=== PATIENT | female | born 1990 | race Caucasian/White ===

== ENCOUNTER 2017-07-23 14:29 | Emergency (ER) | payer BC ==
[2017-07-23] MEDS ORDERED: Sodium Chloride 0.9% 1,000 ML IV STA (15:32)
[2017-07-23] MEDS ORDERED: Sodium Chloride 0.9% 10 ML Syringe FLUSH PRN (15:32)
--- NOTE | 2017-07-23 17:42 | EDM.PDOC ---
ED HPI GENERAL MEDICAL PROBLEM - General Chief Complaint: Gastrointestinal Problem Stated Complaint: VOMITING AND DIARRHEA Time Seen by Provider: 07/23/17 15:13 Source of Information: Reports: Patient History Limitations: Reports: No Limitations - History of Present Illness INITIAL COMMENTS - FREE TEXT/NARRATIVE: The patient presents with nausea, vomiting and diarrhea. This started about 4 days ago. She was seen at the [facility] and give some zofran. The vomiting is better but she has no appetite. She has no fever, chills, cough, chest pain, or shortness of breath. She has no dysuria. She has not been around anyone who is sick and she did not eat any bad food. She has hypothyroidism. She denies abdominal pain. Onset: Gradual Duration: Day(s): Severity: Moderate Improves with: Reports: None Worsens with: Reports: None Associated Symptoms: Reports: Nausea/Vomiting. Denies: Confusion, Chest Pain, Fever/Chills, Headaches, Loss of Appetite headache Pain Score (Numeric/FACES): 7 - Related Data Allergies Allergy/AdvReac Type Severity Reaction Status Date / Time aspirin Allergy Dizziness Verified 07/23/17 15:11 Home Meds: Home Meds Levonorgestrel-Ethin Estradiol [Aviane] 1 tab PO DAILY 07/23/17 [History] Levothyroxine 175 mcg PO ACBRK 07/23/17 [History] Ondansetron [Zofran ODT] 4 mg PO Q6H PRN 07/23/17 [History] Past Medical History Gastrointestinal History: Reports: Cholelithiasis Genitourinary History: Reports: Other (See Below) Other Genitourinary History: HPV Endocrine/Metabolic History: Reports: Hypothyroidism - Past Surgical History HEENT Surgical History: Reports: Adenoidectomy, Tonsillectomy GI Surgical History: Reports: Cholecystectomy, Colonoscopy, EGD Female Surgical History: Reports: Cervical Conization, Other (See Below) Other Female Surgeries/Procedures: colposcopy Endocrine Surgical History: Reports: Other (See Below) Other Endocrine Surgeries/Procedures: radioactive iodine Social & Family History - Family History Family Medical History: Noncontributory - Tobacco Use Smoking Status *Q: Never Smoker - Caffeine Use Caffeine Use: Reports: Coffee - Recreational Drug Use Recreational Drug Use: No ED ROS GENERAL - Review of Systems Review Of Systems: See Below Constitutional: Reports: No Symptoms HEENT: Reports: No Symptoms Respiratory: Reports: No Symptoms Cardiovascular: Reports: No Symptoms Endocrine: Reports: No Symptoms GI/Abdominal: Reports: Diarrhea, Nausea, Vomiting. Denies: Abdominal Pain : Reports: No Symptoms Musculoskeletal: Reports: No Symptoms Skin: Reports: No Symptoms ED EXAM, GI/ABD - Physical Exam Exam: See Below Exam Limited By: No Limitations General Appearance: Alert, No Apparent Distress Ears: Normal External Exam Nose: Normal Inspection Head: Atraumatic, Normocephalic Neck: Normal Inspection Respiratory/Chest: No Respiratory Distress, Lungs Clear, Normal Breath Sounds Cardiovascular: Regular Rate, Rhythm, No Edema, No Murmur GI/Abdominal Exam: Soft, Non-Tender, No Organomegaly, No Mass Back Exam: Normal Inspection Extremities: Normal Inspection Course - Vital Signs Last Recorded V/S: Last Vital Signs Temp 98.1 F 07/23/17 15:07 Pulse 100 07/23/17 15:07 Resp 18 07/23/17 15:07 BP 116/93 H 07/23/17 15:07 Pulse Ox 100 07/23/17 15:07 - Orders/Labs/Meds Orders: Active Orders 24 hr Category Date Time Status Peripheral IV Care [RC] . DIRECTED Care 07/23/17 15:33 Active C DIFFICILE BY PCR W/NAP1 [MOLEC] Stat Lab 07/23/17 17:26 Ordered CULTURE STOOL + SHIGATOX [RM] Stat Lab 07/23/17 17:26 Uncollected OVA & PARASITES BY IMMUNOASSAY [MREF] Stat Lab 07/23/17 17:26 Uncollected WBC, STOOL [OP] Stat Lab 07/23/17 17:26 Uncollected Sodium Chloride 0.9% [Saline Flush] Med 07/23/17 15:32 Active 10 ml FLUSH ASDIRECTED PRN Peripheral IV Insertion Adult [OM.PC] Stat Oth 07/23/17 15:32 Ordered Medication Orders Sodium Chloride (Saline Flush) 10 ml FLUSH ASDIRECTED PRN PRN Reason: Keep Vein Open Last Admin: 07/23/17 15:50 Dose: 10 ml Labs: Laboratory Tests 07/23/17 07/23/17 07/23/17 Range/Units 15:25 15:25 16:01 WBC 4.59 (3.98-10.04) K/mm3 RBC 4.55 (3.98-5.22) M/mm3 Hgb 14.3 (11.2-15.7) gm/L Hct 41.4 (34.1-44.9) % MCV 91.0 (79.4-94.8) fl MCH 31.4 (25.6-32.2) pg MCHC 34.5 (32.2-35.5) g/dl RDW Std Deviation 39.5 (36.4-46.3) fL Plt Count 301 (182-369) K/mm3 MPV 8.8 L (9.4-12.3) fl Neut % (Auto) 63.6 (34.0-71.1) % Lymph % (Auto) 24.2 (19.3-51.7) % [place] % (Auto) 11.1 (4.7-12.5) % Eos % (Auto) 0.7 (0.7-5.8) Baso % (Auto) 0.4 (0.1-1.2) % Neut # (Auto) 2.92 (1.56-6.13) K/mm3 Lymph # (Auto) 1.11 L (1.18-3.74) K/mm3 [place] # (Auto) 0.51 H (0.24-0.36) K/mm3 Eos # (Auto) 0.03 L (0.04-0.36) K/mm3 Baso # (Auto) 0.02 (0.01-0.08) K/mm3 Sodium (136-145) mEq/L Potassium (3.5-5.1) mEq/L Chloride (98-107) mEq/L Carbon Dioxide (21-32) mEq/L Anion Gap (5-15) BUN (7-18) mg/dL Creatinine (0.55-1.02) mg/dL Est Cr Clr Drug Dosing mL/min Estimated GFR (MDRD) (>60) mL/min BUN/Creatinine Ratio (14-18) Glucose (74-106) mg/dL Calcium (8.5-10.1) mg/dL Total Bilirubin (0.2-1.0) mg/dL AST (15-37) U/L ALT (14-59) U/L Alkaline Phosphatase (46-116) U/L Total Protein (6.4-8.2) g/dl Albumin (3.4-5.0) g/dl Globulin gm/dL Albumin/Globulin Ratio (1-2) Lipase (73-393) U/L Urine Color Yellow (Yellow) Urine Appearance Slt cloudy H (Clear) Urine pH 6.0 (5.0-8.0) Ur Specific [place] > or = 1.030 (1.005-1.030) Urine Protein 1+ H (Negative) Urine Glucose (UA) Negative (Negative) Urine Ketones 3+ H (Negative) Urine Occult Blood Trace-lysed H (Negative) Urine Nitrite Negative (Negative) Urine Bilirubin 1+ H (Negative) Urine Urobilinogen 1.0 (0.2-1.0) Ur Leukocyte Esterase Negative (Negative) Urine RBC 0-5 (0-5) /hpf Urine WBC 0-5 (0-5) /hpf Ur Epithelial Cells 5-10 H (0-5) /hpf Urine Bacteria Moderate H (FEW) /hpf Urine Mucus Few (FEW) /hpf Urine HCG, Qual Negative (NEGATIVE) 07/23/17 Range/Units 16:01 WBC (3.98-10.04) K/mm3 RBC (3.98-5.22) M/mm3 Hgb (11.2-15.7) gm/L Hct (34.1-44.9) % MCV (79.4-94.8) fl MCH (25.6-32.2) pg MCHC (32.2-35.5) g/dl RDW Std Deviation (36.4-46.3) fL Plt Count (182-369) K/mm3 MPV (9.4-12.3) fl Neut % (Auto) (34.0-71.1) % Lymph % (Auto) (19.3-51.7) % [place] % (Auto) (4.7-12.5) % Eos % (Auto) (0.7-5.8) Baso % (Auto) (0.1-1.2) % Neut # (Auto) (1.56-6.13) K/mm3 Lymph # (Auto) (1.18-3.74) K/mm3 [place] # (Auto) (0.24-0.36) K/mm3 Eos # (Auto) (0.04-0.36) K/mm3 Baso # (Auto) (0.01-0.08) K/mm3 Sodium 139 (136-145) mEq/L Potassium 3.6 (3.5-5.1) mEq/L Chloride 101 (98-107) mEq/L Carbon Dioxide 22 (21-32) mEq/L Anion Gap 19.6 H (5-15) BUN 18 (7-18) mg/dL Creatinine 1.1 H (0.55-1.02) mg/dL Est Cr Clr Drug Dosing 65.75 mL/min Estimated GFR (MDRD) 59 (>60) mL/min BUN/Creatinine Ratio 16.4 (14-18) Glucose 80 (74-106) mg/dL Calcium 8.9 (8.5-10.1) mg/dL Total Bilirubin 0.4 (0.2-1.0) mg/dL AST 38 H (15-37) U/L ALT 56 (14-59) U/L Alkaline Phosphatase 53 (46-116) U/L Total Protein 7.9 (6.4-8.2) g/dl Albumin 4.1 (3.4-5.0) g/dl Globulin 3.8 gm/dL Albumin/Globulin Ratio 1.1 (1-2) Lipase 121 (73-393) U/L Urine Color (Yellow) Urine Appearance (Clear) Urine pH (5.0-8.0) Ur Specific [place] (1.005-1.030) Urine Protein (Negative) Urine Glucose (UA) (Negative) Urine Ketones (Negative) Urine Occult Blood (Negative) Urine Nitrite (Negative) Urine Bilirubin (Negative) Urine Urobilinogen (0.2-1.0) Ur Leukocyte Esterase (Negative) Urine RBC (0-5) /hpf Urine WBC (0-5) /hpf Ur Epithelial Cells (0-5) /hpf Urine Bacteria (FEW) /hpf Urine Mucus (FEW) /hpf Urine HCG, Qual (NEGATIVE) Meds: Medications Generic Name Dose Route Start Last Admin Trade Name Freq PRN Reason Stop Dose Admin Sodium Chloride 10 ml 07/23/17 15:32 07/23/17 15:50 Saline Flush FLUSH 10 ml ASDIRECTED PRN Administration Keep Vein Open Discontinued Medications Generic Name Dose Route Start Last Admin Trade Name Freq PRN Reason Stop Dose Admin Sodium Chloride 1,000 mls @ 1,000 mls/hr 07/23/17 15:32 07/23/17 15:50 Normal Saline IV 07/23/17 16:31 1,000 mls/hr .BOLUS STA Administration - Re-Assessments/Exams Free Text/Narrative Re-Assessment/Exam: 07/23/17 17:43 I ordered an IV NS 1L bolus, labs, UA and stool studies. 07/23/17 17:44 Her CBC looks good. Her creatinine was elevated at 1.1. Her lipase was negative. Her UA shows no UTI. I have stool samples. They are not back yet. I can call her the results. Departure - Departure Time of Disposition: 17:45 Disposition: Home, Self-Care 01 Condition: Good Clinical Impression: Gastroenteritis - Discharge Information Referrals: PCP,Not In Area [Primary Care Provider] - Additional Instructions: Drink plenty of fluids. Take the zofran as needed. Try to drink some pure protein from [employer]. I will call you the stool study results. Please return if you are worse. - My Orders Last 24 Hours: My Active Orders 07/23/17 15:32 Sodium Chloride 0.9% [Saline Flush] 10 ml FLUSH ASDIRECTED PRN Peripheral IV Insertion Adult [OM.PC] Stat 07/23/17 15:33 Peripheral IV Care [RC] . DIRECTED 07/23/17 17:26 C DIFFICILE BY PCR W/NAP1 [MOLEC] Stat CULTURE STOOL + SHIGATOX [RM] Stat OVA & PARASITES BY IMMUNOASSAY [MREF] Stat WBC, STOOL [OP] Stat - Assessment/Plan Last 24 Hours: My Active Orders 07/23/17 15:32 Sodium Chloride 0.9% [Saline Flush] 10 ml FLUSH ASDIRECTED PRN Peripheral IV Insertion Adult [OM.PC] Stat 07/23/17 15:33 Peripheral IV Care [RC] . DIRECTED 07/23/17 17:26 C DIFFICILE BY PCR W/NAP1 [MOLEC] Stat CULTURE STOOL + SHIGATOX [RM] Stat OVA & PARASITES BY IMMUNOASSAY [MREF] Stat WBC, STOOL [OP] Stat
== END 2017-07-23 18:05 | disposition home or self-care (01) ==
LOC: JD.ED 14:29
DX: K52.9 Noninfective gastroenteritis and colitis, unspecified (principal); E03.9 Hypothyroidism, unspecified; Z79.899 Other long term (current) drug therapy; Z88.6 Allergy status to analgesic agent
CPT/HCPCS: 36415; 80053; 81001; 81025; 83690; 85025; 87046; 87328; 87329; 87493; 96360; 99284; J7040; J7050; 87427; 99283

== ENCOUNTER 2022-05-16 18:29 | Emergency (ER) | payer BC ==
[2022-05-16 19:52] LABS: CORONAVIRUS COVID-19 NAA POSITIVE (NEGATIVE)
== END 2022-05-16 20:28 | disposition home or self-care (01) ==
LOC: JD.ED 18:29
DX: U07.1 COVID-19 (principal); Z88.6 Allergy status to analgesic agent; Z79.899 Other long term (current) drug therapy; Z90.49 Acquired absence of other specified parts of digestive tract
CPT/HCPCS: 0241U; 99283

== ENCOUNTER 2023-02-22 18:27 | Emergency (ER) | payer BC ==
[2023-02-22] MEDS ORDERED: Silver Sulfadiazine 1% Crm 50 GM Tube TOP ONE (19:00)
[2023-02-22] MEDS ORDERED: Ondansetron 4 MG Tab.DIS PO ONE (19:35)
== END 2023-02-22 19:54 | disposition home or self-care (01) ==
LOC: JD.ED 18:27
DX: T23.231A Burn of second degree of multiple right fingers (nail), not including thumb, initial encounter (principal); E03.9 Hypothyroidism, unspecified; Z79.899 Other long term (current) drug therapy; Z88.6 Allergy status to analgesic agent; X15.0XXA Contact with hot stove (kitchen), initial encounter
CPT/HCPCS: 16020; 99283; A9270